=== PATIENT | female | born 1975 | race Caucasian/White ===

== ENCOUNTER → 2020-06-11 | Outpatient (CLI) | payer BC ==
[2020-06-11 12:49] LABS: HEMOGLOBIN 14.7 gm/dl (12.3-15.3); RED BLOOD COUNT 4.68 M/UL (4.00-5.10); WHITE BLOOD COUNT 7.7 K/UL (4.5-11.0)
[2020-06-11 13:07] LABS: BUN/CREATININE RATIO 22 (0-10)
[2020-06-13 09:08] LABS: THYROXINE (T4) 7.4 ug/dL (4.5-12.0)
[2020-06-13 10:08] LABS: VITAMIN D, 25-HYDROXY 15.8 ng/mL (30.0-100.0)
== END ==
LOC: LAB 11:11 → RAD 11:11
PROVIDERS: Nurse Practitioner Family
DX: R53.83 Other fatigue (principal); R03.0 Elevated blood-pressure reading, without diagnosis of hypertension; M25.552 Pain in left hip; M25.551 Pain in right hip; M25.562 Pain in left knee; M25.571 Pain in right ankle and joints of right foot; M10.9 Gout, unspecified; E55.9 Vitamin D deficiency, unspecified
CPT/HCPCS: 73502; 73610; 73630; 80053; 80061; 84436; 84443; 84480; 84550; 85025